=== PATIENT | male | born 1975 | race Two or more races ===

== ENCOUNTER 2016-06-13 05:59 | Day surgery (SDC) | payer MEDICAID ==
[2016-06-13] MEDS ORDERED: LACTATED RINGERS 1,000 ML ONE (06:32)
[2016-06-13] MEDS ORDERED: IV START KIT ONE (06:32)
[2016-06-13] MEDS ORDERED: MIDAZOLAM HCL 1 MG/ML 2ML VIAL ONE (06:41)
[2016-06-13] MEDS ORDERED: FENTANYL 5 ML ONE (06:41)
[2016-06-13] MEDS ORDERED: LACTATED RINGERS 1,000 ML IV SCH ×3 (06:45→11:00)
[2016-06-13] MEDS ORDERED: CEFAZOLIN SODIUM 2 GRAM PREMIX 2 G in Premix (D5W) 100 ml 1 EACH IV PRN (06:45)
[2016-06-13] MEDS ORDERED: LIDOCAINE 1% 2 ML VIAL ID PRN (06:45)
[2016-06-13] MEDS ORDERED: CEFAZOLIN SODIUM 2 GRAM PREMIX 100 ML IV ONE (06:47)
[2016-06-13] MEDS ORDERED: LIDOCAINE 1%/EPI 1:100,000 (MULTI DOSE) 30 ML VIAL ONE ×2 (06:56→07:13)
[2016-06-13] MEDS ORDERED: PROPOFOL 20 ML IV ONE (07:44)
[2016-06-13] MEDS ORDERED: LIDOCAINE 2% (MULTI DOSE) 10 ML VIAL ONE (07:44)
[2016-06-13] MEDS ORDERED: ROCURONIUM BROMIDE 10 MG/ML DOSE IV ONE (07:45)
[2016-06-13] MEDS ORDERED: ONDANSETRON 4 MG/2ML 2 ML VIAL ONE (07:45)
[2016-06-13] MEDS ORDERED: DEXAMETHASONE SOD PHOS 4 MG/1 ML VIAL ONE (07:45)
[2016-06-13] MEDS ORDERED: SUCCINYLCHOLINE CHL 20 MG/ML DOSE ONE (07:45)
[2016-06-13] MEDS ORDERED: HYDROMORPHONE HCL 2 MG/ML SYRINGE ONE (07:55)
[2016-06-13] MEDS ORDERED: ATROPINE SULFATE 0.4 MG/1 ML VIAL IV PRN (10:01)
[2016-06-13] MEDS ORDERED: PROMETHAZINE HCL 25 MG/ML VIAL IM PRN (10:01)
[2016-06-13] MEDS ORDERED: MEPERIDINE 25 MG/ML SYRINGE IV PRN (10:01)
[2016-06-13] MEDS ORDERED: FENTANYL 100 MCG/2 ML VIAL IV PRN (10:01)
[2016-06-13] MEDS ORDERED: LABETALOL HCL 5 MG/ML 20ML VIAL IV PRN (10:01)
[2016-06-13] MEDS ORDERED: HYDRALAZINE HCL 20 MG/1 ML VIAL IV PRN (10:01)
[2016-06-13] MEDS ORDERED: ONDANSETRON 4 MG/2ML 2 ML VIAL IV PRN ×2 (10:01→10:58)
[2016-06-13] MEDS ORDERED: HYDROMORPHONE HCL 1 MG/ML SYRINGE IV PRN ×2 (10:01→10:58)
[2016-06-13] MEDS ORDERED: NALOXONE HCL 0.4 MG/ML VIAL IV PRN (10:01)
[2016-06-13] MEDS ORDERED: FENTANYL 100 MCG/2 ML VIAL ONE (10:39)
--- NOTE | 2016-06-13 10:54 | PCMBPN ---
Brief Post Op Note: Date of Procedure: 06/13/16 Start Time: 0745ish Preoperative Diagnosis: 1. Right inguinal hernia possible left, incarcerated Postoperative Diagnosis: 1. Right inguinal hernia incarcerated, Left inguinal hernia Procedure: Laparascopic bilateral inguinal hernia repair with mesh Surgeon: Anna Marie Irvin MD Assist:Evelia Gonzales Anesthesia: GETA Findings: see dictation Condition: stable Complications: none IV Fluids: see anesthesia report Urine Output: see anesthesia report Estimated Blood Loss: 10 mLs Tourniquet Time: N/A Specimens: N/A Implants: 2 10x15 self fixating laparoscopic mesh Drains: [N/A]
[2016-06-13] MEDS ORDERED: OXYCODONE/ACETAMINOPHEN 5/325 MG TABLET PO PRN (10:58)
[2016-06-13] MEDS ORDERED: HYDROMORPHONE HCL 1 MG/ML SYRINGE ONE (11:18)
[2016-06-13] MEDS ORDERED: NEOSTIGMINE METHYLSULFATE 1 MG/ML DOSE ONE (11:56)
[2016-06-13] MEDS ORDERED: GLYCOPYRROLATE 0.2 MG/ML 1ML VIAL ONE (11:56)
[2016-06-13] MEDS ORDERED: OXYCODONE/ACETAMINOPHEN 5/325 MG TABLET ONE (13:27)
--- NOTE | 2016-06-13 16:52 | OP ---
AKHIL VIVAR [id number] DATE OF SERVICE: June 13, 2015 PREOPERATIVE DIAGNOSES: Right inguinal hernia. POSTOPERATIVE DIAGNOSES: Right inguinal hernia and left inguinal hernia. PROCEDURE PERFORMED: BILATERAL INGUINAL HERNIA REPAIR PREPERITONEAL. SURGEON: Anna Marie Irvin M.D. TORPEDOMAN'S MATE: Farhan Chou ANESTHESIA: General. FINDINGS: A very large incarcerated right inguinal hernia, needed LigaSure to remove all of the attachments. Some oozing with just pulling the attachments down. Left hernia was a large amount of fat that was in it but not as stuck as the right side. TECHNIQUE: The patient was brought to the operating room and placed under general anesthesia. The abdomen was prepped and draped in sterile surgical fashion along with the groin. Local anesthetic was placed just inferior to the umbilicus and a #15 blade scalpel was used to make a less than 3 cm transverse incision. Electrocautery was used to cut through the subcutaneous tissue down to the level of the fascia. The fascia was opened, the anterior rectus sheath was opened on the right side. The rectus muscle was pushed aside and the hernia spacer system was placed just inferior the rectus muscle. Then the camera was inserted to watch the balloon be pumped up. It was pumped up 40 times and held in place. It looked like it was in good position. The pubic tubercle was visualized. No bowel was visualized. Once held in place for at least 30 seconds, it was deflated and the balloon that holds the spacer in place was inflated. The CO2 was set on 15 mmHg, and then we placed the camera back in after the spacer balloon was removed. This was a very tight space and two 5 mm ports were placed in the midline under direct visualization. Once those were placed, Kittners were used to bluntly dissect the right side. Almost immediately, a large hernia was encountered. I continued as much blunt dissection as I could surrounding the hernia, and then when I got to just the hernia area, I used graspers. This was quite stuck to some mesh and initially I was pulling this down with graspers and even used some scissors on some spots, but it was so stuck with muscle tissue as well as fat. Some of this was oozing, and I had to use a little bit of electrocautery on the cut ends and I finally decided to get the LigaSure out. I used the LigaSure to help dissect the muscle and fatty tissues that were stuck to the prior mesh and in the hernia sac. I freed everything up and dissected everything down except for the vas deferens. Once everything was down out of the way except for the vas, which was mobile, I examined everything else. There was no direct hernia, just the indirect one. I placed a 10 x 15 self fixating mesh by unrolling it in the cavity. It was well around the hernia defects. It was covering the direct femoral and the indirect hernia spots with good surrounding coverage clear over to the pubic tubercle and to the superior iliac spine superiorly and inferiorly. Once that was placed, I made sure that all of the fat and the peritoneal layer was out from underneath the mesh. I looked at the other side. There was still a lot of tissue up on the other side, so I had to use Kittners to bluntly dissect down. It took me a little bit of time, but I finally found the cord structures and pulled them away from the abdominal wall, and I found that there was a lot of fat and hernia sac on this side as well but it was not as adherent to a mesh as the other side was. I dissected everything down and out of the way. I did save vascular structures as well as the vas deferens on this side and pulled everything else out from the hernia defect. I examined for other defects. I did not see a femoral or a direct hernia. I swept everything out of the way, and then I placed a 10 x 15 self fixating laparoscopic mesh in the space and unrolled it so that I had wide coverage around all the potential hernia spots and I made sure that the peritoneum and fatty tissue was out from underneath the mesh. It covered over to the superior iliac spine and across the pubic tubercle and covered superiorly and inferiorly adequately. Once everything was done, I examined everything. It was still in good position. I deflated the cavity, removed the port sites and then closed the fascia with #0 Vicryl at the periumbilical port site and then closed the skin incisions with #4-0 Monocryl. SteriStrips were applied, and the patient was awakened and returned to recovery room in stable condition. All needle, instrument and sponge counts were correct at the end of the case.
== END 2016-06-13 13:55 | disposition home or self-care (01) ==
LOC: SDC 05:59
PROVIDERS: ATTEND Surgery
PROC: 0YUA4JZ Supplement Bilateral Inguinal Region with Synthetic Substitute, Percutaneous Endoscopic Approach (ICD-10-PCS; principal; 2016-06-13)
DX: K40.31 Unilateral inguinal hernia, with obstruction, without gangrene, recurrent (principal); K40.91 Unilateral inguinal hernia, without obstruction or gangrene, recurrent; F32.9 Major depressive disorder, single episode, unspecified